=== PATIENT | female | born 1960 | race Caucasian/White ===

== ENCOUNTER → 2016-07-22 | Outpatient (CLI) | payer BC | LOC: COL.LAB 09:13 | DX: I10 Essential (primary) hypertension (principal); E66.9 Obesity, unspecified ==

== ENCOUNTER → 2016-08-11 | Outpatient (CLI) | payer BC ==
[2016-08-11 09:44] LABS: HEMATOCRIT 38.7 % (37.0-47.0); HEMOGLOBIN 12.3 g/dl (12.5-16.0); MEAN CELL VOLUME 86 fl (80.0-100.0); MEAN CORPUSCULAR HEMOGLOBIN 27 pg (27.0-31.0); MEAN CORPUSCULAR HGB CONC 32 g/dl (33.0-37.0); MEAN PLATELET VOLUME 12.6 fl (7.4-10.4); PLATELET COUNT 60 K/mm3 (130-400); RED BLOOD COUNT 4.49 M/mm3 (4.10-5.30); REDCELL DISTRIBUTION WIDTH-CV 13.7 % (11.5-14.5); WHITE BLOOD COUNT 5.2 K/mm3 (4.8-10.8)
[2016-08-11 09:53] LABS: ADJUSTED CALCIUM 8.5 mg/dL (8.4-10.2); ALBUMIN 4.2 gm/dL (3.5-5.0); BILIRUBIN,TOTAL 1.2 mg/dL (0.0-1.0); CALCIUM 8.7 mg/dL (8.4-10.2); CREATININE, serum 0.52 mg/dL (0.52-1.25); TOTAL PROTEIN 7.5 gm/dL (6.4-8.2)
[2016-08-11 10:13] LABS: PH 7 (5-8); SQUAMOUS EPITHELIAL 0-2 /hpf; URINE APPEARANCE Clear; URINE BACTERIA Rare /hpf; URINE BILIRUBIN Negative (NEGATIVE); URINE BLOOD Negative (NEGATIVE); URINE COLOR Straw; URINE GLUCOSE Negative (NEGATIVE); URINE KETONE Negative (NEGATIVE); URINE RBC 0-2 /hpf; URINE UROBILINOGEN Negative (NEGATIVE); URINE WBC 0-2 /hpf
[2016-08-11 10:22] LABS: THYROID STIMULATING HORMONE 2.83 uIU/mL (0.465-4.680)
== END ==
LOC: COL.LAB 08:32
DX: E66.9 Obesity, unspecified (principal); I10 Essential (primary) hypertension

== ENCOUNTER 2018-06-14 10:45 | Outpatient (RCR) | payer OTHER | END 2018-06-21 | disposition home or self-care (01) | LOC: WSOT | DX: S52.501D Unspecified fracture of the lower end of right radius, subsequent encounter for closed fracture with routine healing (principal) ==

== ENCOUNTER 2018-09-28 15:00 | Outpatient (RCR) | payer OTHER | END 2018-10-03 | disposition still patient (30) | LOC: WSOT | DX: S52.501D Unspecified fracture of the lower end of right radius, subsequent encounter for closed fracture with routine healing (principal) ==

== ENCOUNTER 2018-10-05 13:00 | Outpatient (RCR) | payer OTHER | END 2018-11-18 17:01 | disposition home or self-care (01) | LOC: WSOT 13:00 | DX: Z98.890 Other specified postprocedural states (principal) ==

== ENCOUNTER → 2019-04-04 | Outpatient (CLI) | payer BC ==
[~2019-04-04] MED LIST: BYSTOLIC20 MG PO; HYGROTON 2525 MG/TAB; PRINIVIL40 MG PO; ZOCOR 40MG40 MG PO
== END ==
LOC: COL.RAD 09:35
DX: D69.6 Thrombocytopenia, unspecified (principal)

== ENCOUNTER 2019-04-05 14:03 | Emergency (ER) | payer BC ==
[~2019-04-05] VITALS: Ht 152.4 cm; Wt 98.6 kg
[2019-04-05 14:17] VITALS: TEMP 98.8
[2019-04-05] MEDS ORDERED: BYSTOLIC20 MG PO (14:32)
[2019-04-05] MEDS ORDERED: PRINIVIL40 MG PO (14:34)
[2019-04-05] MEDS ORDERED: HYGROTON 2525 MG/TAB (14:34)
[2019-04-05] MEDS ORDERED: ZOCOR 40MG40 MG PO (14:34)
[2019-04-05 15:55] VITALS: BP 142/81; PULSE 81
== END 2019-04-05 15:55 | disposition home or self-care (01) ==
LOC: COL.ER 14:03
DX: M17.12 Unilateral primary osteoarthritis, left knee (principal); I10 Essential (primary) hypertension; E78.5 Hyperlipidemia, unspecified

== ENCOUNTER 2020-09-02 19:09 | Emergency (ER) | payer SELFPAY ==
[~2020-09-02] VITALS: Ht 157.5 cm; Wt 115.9 kg
[2020-09-02 19:18] VITALS: TEMP 98.6
[2020-09-02] MEDS ORDERED: COREG 25MG25 MG/TAB PO (20:16)
[2020-09-02 22:35] VITALS: BP 145/84; PULSE 68
== END 2020-09-02 22:35 | disposition home or self-care (01) ==
LOC: COL.ER 19:09
DX: S52.122A Displaced fracture of head of left radius, initial encounter for closed fracture (principal); S52.132A Displaced fracture of neck of left radius, initial encounter for closed fracture; S52.002A Unspecified fracture of upper end of left ulna, initial encounter for closed fracture; I10 Essential (primary) hypertension; E78.5 Hyperlipidemia, unspecified; Z79.899 Other long term (current) drug therapy; W01.0XXA Fall on same level from slipping, tripping and stumbling without subsequent striking against object, initial encounter; Y92.009 Unspecified place in unspecified non-institutional (private) residence as the place of occurrence of the external cause

== ENCOUNTER 2020-10-21 15:31 | Emergency (ER) | payer OTHER ==
[~2020-10-21] VITALS: Ht 157.5 cm; Wt 127.3 kg
[~2020-10-21 15:31] MED LIST changes: +COREG 25MG25 MG/TAB PO
[2020-10-21 18:14] LABS: MEAN CELL VOLUME 85 fl (80.0-100.0); MEAN CORPUSCULAR HGB CONC 32 g/dl (33.0-37.0); MEAN PLATELET VOLUME 10.4 fl (7.4-10.4); PLATELET COUNT 200 K/mm3 (130-400); RED BLOOD COUNT 3.14 M/mm3 (4.10-5.30)
[2020-10-21 18:16] LABS: HEMATOCRIT 26.8 % (37.0-47.0); HEMOGLOBIN 8.5 g/dl (12.5-16.0); MEAN CORPUSCULAR HEMOGLOBIN 27 pg (27.0-31.0)
[2020-10-21 18:25] LABS: ALBUMIN 2.7 gm/dL (3.5-5.0); BILIRUBIN,TOTAL 0.8 mg/dL (0.0-1.0); CALCIUM 7.8 mg/dL (8.4-10.2); CREATININE, serum 1.91 (0.52-1.25); POTASSIUM 4.3 mmol/L (3.4-5.0); TOTAL PROTEIN 5.8 gm/dL (6.4-8.2)
[2020-10-21 18:55] LABS: BAND 1 % (0-10); EOSINOPHIL 1 % (0-4); HYPOCHROMIA 2+; LYMPHOCYTE 10 % (20.0-51.0); NEUTROPHILS 81 % (42.0-75.2); PLATELET ESTIMATE NORMAL (NORMAL)
[2020-10-21 20:11] LABS: C-REACTIVE PROTEIN 13.9 mg/dL (0.0-0.9)
[2020-10-21 22:58] LABS: COLLECTION METHOD CLEAN CATCH
[2020-10-21 23:07] LABS: MUCOUS Present /lpf; PH 5 (5-8); URINE APPEARANCE Cloudy; URINE BACTERIA Rare /hpf; URINE BILIRUBIN Negative (NEGATIVE); URINE BLOOD Negative (NEGATIVE); URINE COLOR Amber; URINE GLUCOSE Negative (NEGATIVE); URINE KETONE Negative (NEGATIVE); URINE LEUKOCYTE ESTERASE Negative (NEGATIVE); URINE NITRATE Negative (NEGATIVE); URINE PROTEIN(semi-quant) Negative (NEGATIVE); URINE RBC 0-2 /hpf
[2020-10-21 23:15] VITALS: BP 118/69; PULSE 64; TEMP 98.4
== END 2020-10-21 23:15 | disposition short-term general hospital (02) ==
LOC: COL.ER 15:31
PROVIDERS: Emergency Medicine
DX: A41.9 Sepsis, unspecified organism (principal); R65.21 Severe sepsis with septic shock; I10 Essential (primary) hypertension; E78.5 Hyperlipidemia, unspecified; Z20.822 Contact with and (suspected) exposure to COVID-19; Z79.899 Other long term (current) drug therapy
CPT/HCPCS: J2543; J3010; J3370; J7030; J7040; J7060